=== PATIENT | female | born 1935 | race Caucasian/White ===

== ENCOUNTER 2017-01-02 01:15 | Inpatient (IN) | payer OTHER, MEDICARE ==
[~2017-01-02] VITALS: Ht 167.6 cm; Wt 97.0 kg
[2017-01-02] VITALS (8 sets, daily range): BP systolic 135–177; BP diastolic 61–83; PULSE 68–78; RESP 16–22; TEMP 95.5–98; O2SAT 93–98
[2017-01-02] MEDS ORDERED: OXYB5TAB10 PO (01:28)
[2017-01-02] MEDS ORDERED: AMLO10TA2 PO (01:28)
[2017-01-02] MEDS ORDERED: POTA10CA PO (01:28)
[2017-01-02] MEDS ORDERED: LOVA40TA PO (01:28)
[2017-01-02] MEDS ORDERED: TRIA37.5 PO (01:28)
[2017-01-02] MEDS ORDERED: LEVO100T5 PO (01:28)
[2017-01-02] MEDS ORDERED: LOSA50TA PO (01:28)
[2017-01-02] MEDS ORDERED: ONDANSETRON HCL 4 MG/2 ML VIAL IV PUSH ONE ×2 (01:30→12:00)
[2017-01-02] MEDS ORDERED: HYDROmorphone HCL PF 1 MG/ML VIAL IV PUSH ONE ×2 (01:30→03:15)
[2017-01-02] MEDS ORDERED: SODIUM CHLOR 0.9% 1000 ML INJ 1,000 ML IV SCH (01:30)
[2017-01-02 01:38] LABS: AUTOMATED NEUTROPHIL # 5.2 TH/MM3 (1.8-7.7); BASOPHIL # 0.1 TH/MM3 (0-0.2); BASOPHIL % 0.9 % (0.0-2.0); EOSINOPHIL # 0.2 TH/MM3 (0-0.4); EOSINOPHIL % 2.1 % (0.0-4.0); HEMATOCRIT 39.2 % (35.0-46.0); HEMO FLAGS DIFF FINAL; LYMPH % 17.5 % (9.0-44.0); LYMPHOCYTE # 1.3 TH/MM3 (1.0-4.8); MEAN CELL VOLUME 86.7 FL (80.0-100.0); MEAN CORPUSCULAR HEMOGLOBIN 29.2 PG (27.0-34.0); MEAN CORPUSCULAR HGB CONC 33.7 % (32.0-36.0); MONO % 10.5 % (0.0-8.0); PLATELET COUNT 223 TH/MM3 (150-450); RED BLOOD COUNT 4.52 MIL/MM3 (4.00-5.30); WHITE BLOOD COUNT 7.5 TH/MM3 (4.0-11.0)
[2017-01-02 01:48] LABS: APTT (PATIENT) 24.1 SEC (24.3-30.1); PROTHROMBIN TIME - PATIENT 10.9 SEC (9.8-11.6)
[2017-01-02 01:52] LABS: ALKALINE PHOSPHATASE 78 U/L (45-117); TOTAL BILIRUBIN ADULT 0.3 MG/DL (0.2-1.0)
[2017-01-02 01:53] LABS: ALT (GPT) 49 U/L (10-53); ANION GAP 7 MEQ/L (5-15); AST (GOT) 38 U/L (15-37); BICARBONATE 27.1 MEQ/L (21.0-32.0); BLOOD UREA NITROGEN 22 MG/DL (7-18); CHLORIDE 108 MEQ/L (98-107); GLOMERULAR FILTRATION RATE 56 ML/MIN (>89); POTASSIUM 3.6 MEQ/L (3.5-5.1); SODIUM (NA) 142 MEQ/L (136-145)
--- NOTE | 2017-01-02 02:15 | RADRPT ---
EXAM DATE/TIME: 01/02/2017 01:43 [facility] COMPARISON: No previous studies available for comparison. INDICATIONS : Patient states she fell tonight, pain. MEDICAL HISTORY : None. SURGICAL HISTORY : None. ENCOUNTER: Initial ACUITY: 1 day PAIN SCORE: 0/10 LOCATION: Bilateral chest FINDINGS: There is a large hiatal hernia. Heart size also enlarged. No focal consolidation or significant effus ion. No pneumothorax identified. Previous right shoulder joint replacement. CONCLUSION: 1. Moderate size hiatal hernia. No acute findings. Blue Elmore MD on January 02, 2017 at 2:13 Board Certified Radiologist. This report was verified electronically.
--- NOTE | 2017-01-02 02:16 | PD ---
HPI Chief Complaint: Injury Time Seen by Provider: : Travel History International Travel<30 days: No Contact w/Intl Traveler<30days: No Traveled to known affect area: No History of Present Illness HPI 81-year-old female complains of left leg pain. Patient states that she was walking and heard a snapping noise and started having severe pain on the left leg. Patient states that she fell down subsequently. Patient denies loss of consciousness. Patient denies any headache or neck pain. Patient denies any chest pain or shortness of breath. Patient denies abdominal pain. Patient denied any focal weakness or numbness of extremity. Patient had shoulder surgery in the past by Dr. Virk, Dr. Rivera and Dr. Israel. Patient has history of hypothyroidism, hypertension, dyslipidemia. PFSH Past Medical History High Cholesterol: Yes Genitourinary: Yes (URINARY INCONTINENCE) Hypertension: Yes Thyroid Disease: Yes (HYPO) ?: Not Past Surgical History Appendectomy: Yes Hysterectomy: Yes Other Surgery: Yes (CARPAL TUNNEL RELEASE BILAT, LEFT TOES SX) Social History Alcohol Use: Yes (OCC.) Tobacco Use: No Substance Use: No Allergies-Medications (Allergen,Severity, Reaction): Coded Allergies: Demerol (Verified Allergy, Severe, 01/02/17) Morphine (Verified Allergy, Severe, 01/02/17) Talwin (Verified Allergy, Severe, 01/02/17) Codeine (Verified Adverse Reaction, Severe, NAUSEA/VOMITING, 01/02/17) Uncoded Allergies: DEMEROL,TALWIN,CODEINE,MORPHINE (Allergy, Unknown, 07/14/03) NKA (Allergy, Unknown, 07/14/03) Reported Meds & Prescriptions Reported Meds & Active Scripts Active Reported Potassium Chloride ER (Potassium Chloride) 10 Meq Cap 10 Meq PO DAILY Triamterene-Hydrochlorothiazide 37.5-25 Mg Tab 1 Tab PO DAILY Levothyroxine (Levothyroxine Sodium) 100 Mcg Tab 100 Mcg PO DAILY Amlodipine (Amlodipine Besylate) 10 Mg Tab 10 Mg PO DAILY Losartan (Losartan Potassium) 50 Mg Tab 50 Mg PO DAILY Lovastatin 40 Mg Tab 40 Mg PO BID Ditropan (Oxybutynin Chloride) 5 Mg Tab 5 Mg PO Q12HR Review of Systems General / Constitutional: No: Fever Eyes: No: Visual changes HENT: No: Headaches Cardiovascular: No: Chest Pain or Discomfort Respiratory: No: Shortness of Breath Gastrointestinal: No: Abdominal Pain Genitourinary: No: Dysuria Musculoskeletal: Positive: Pain Skin: No Rash Neurologic: No: Weakness Psychiatric: No: Depression Endocrine: No: Polydipsia Hematologic/Lymphatic: No: Easy Bruising Physical Exam Narrative GENERAL: Well-nourished, well-developed patient. SKIN: Warm and dry. HEAD: Normocephalic. EYES: No scleral icterus. No injection or drainage. NECK: Supple, trachea midline. No JVD or lymphadenopathy. CARDIOVASCULAR: Regular rate and rhythm without murmurs, gallops, or rubs. RESPIRATORY: Breath sounds equal bilaterally. No accessory muscle use. GASTROINTESTINAL: Abdomen soft, non-tender, nondistended. MUSCULOSKELETAL: Patient has moderate tenderness diffuse over the left thigh area. Good DP pulse left foot. Sensorimotor function distally intact. BACK: Nontender without obvious deformity. No CVA tenderness. Neurologic exam normal. Data Data Last Documented VS Vital Signs Date Time Temp Pulse Resp B/P Pulse Ox O2 Delivery O2 Flow Rate FiO2 01/02/17 01:24 95 Room Air 01/02/17 01:19 69 01/02/17:17 98.0 22 177/83 Orders Electrocardiogram (01/02/17 01:18) Complete Blood Count With Diff (01/02/17 01:18) Comprehensive Metabolic Panel (01/02/17 01:18) Prothrombin Time / Inr (Pt) (01/02/17 01:18) Act Partial Throm Time (Ptt) (01/02/17 01:18) Urinalysis - C+S If Indicated (01/02/17 01:18) Chest, Single Ap (01/02/17 01:18) Iv Access Insert/Monitor (01/02/17 01:18) Ecg Monitoring (01/02/17 01:18) Oximetry (01/02/17 01:18) Urinary Catheter Insert/Apply (01/02/17 01:18) Type And Screen (01/02/17 01:18) Femur (Ap & Lat/2vws) (01/02/17 01:18) Sodium Chlor 0.9% 1000 Ml Inj (Ns 1000 M (01/02/17 01:30) Hydromorphone Pf Inj (Dilaudid Pf Inj) (01/02/17 01:30) Ondansetron Inj (Zofran Inj) (01/02/17 01:30) Admit Order (Ed Use Only) (01/02/17 02:16) Consult Orthopedic (01/03/17 07:00) Splint Or Brace Apply/Monitor (01/02/17 02:19) Labs Laboratory Tests Test 01/02/17 01:20 White Blood Count 7.5 TH/MM3 Red Blood Count 4.52 MIL/MM3 Hemoglobin 13.2 GM/DL Hematocrit 39.2 % Mean Corpuscular Volume 86.7 FL Mean Corpuscular Hemoglobin 29.2 PG Mean Corpuscular Hemoglobin 33.7 % Concent Red Cell Distribution Width 14.0 % Platelet Count 223 TH/MM3 Mean Platelet Volume 7.8 FL Neutrophils (%) (Auto) 69.0 % Lymphocytes (%) (Auto) 17.5 % Monocytes (%) (Auto) 10.5 % Eosinophils (%) (Auto) 2.1 % Basophils (%) (Auto) 0.9 % Neutrophils # (Auto) 5.2 TH/MM3 Lymphocytes # (Auto) 1.3 TH/MM3 Monocytes # (Auto) 0.8 TH/MM3 Eosinophils # (Auto) 0.2 TH/MM3 Basophils # (Auto) 0.1 TH/MM3 CBC Comment DIFF FINAL Differential Comment Prothrombin Time 10.9 SEC Prothromb Time International 1.0 RATIO Ratio Activated Partial 24.1 SEC Thromboplast Time Sodium Level 142 MEQ/L Potassium Level 3.6 MEQ/L Chloride Level 108 MEQ/L Carbon Dioxide Level 27.1 MEQ/L Anion Gap 7 MEQ/L Blood Urea Nitrogen 22 MG/DL Creatinine 0.95 MG/DL Estimat Glomerular Filtration 56 ML/MIN Rate Random Glucose 120 MG/DL Calcium Level 9.2 MG/DL Total Bilirubin 0.3 MG/DL Aspartate Amino Transf 38 U/L (AST/SGOT) Alanine Aminotransferase 49 U/L (ALT/SGPT) Alkaline Phosphatase 78 U/L Total Protein 6.4 GM/DL Albumin 3.6 GM/DL Blood Type A POSITIVE [facility] Medical Decision Making Medical Screen Exam Complete: Yes Emergency Medical Condition: Yes Differential Diagnosis Differential diagnosis including sprain, fracture, dislocation. Narrative Course 81-year-old female with left thigh injury. Dilaudid 1 mg IV. Zofran 4 mg IV. Normal saline solution 70 cc an hour. I spoke with Dr. Rivera, orthopedist environmental aide. Advised medical admission and consult Dr. Crawley in a.m. Guardado's traction. Diagnosis Primary Impression: Fracture of left femur Qualified Code: S72.322A - Closed displaced transverse fracture of shaft of left femur, initial encounter Admitting Information Admitting Physician Requests: Admit Yusuf Garza MD Jan 02, 2017 02:16
--- NOTE | 2017-01-02 02:17 | RADRPT ---
EXAM DATE/TIME: 01/02/2017 01:34 [facility] COMPARISON: No previous studies available for comparison. INDICATIONS : Patient states she was walking and heard a snap from her left leg. MEDICAL HISTORY : None. SURGICAL HISTORY : None. ENCOUNTER: Initial ACUITY: 1 day PAIN SCORE: 10/10 LOCATION: Left Femur FINDINGS: There is a fracture proximal to mid shaft left femur. Bones osteopenic. 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 CONCLUSION: 1. Fracture proximal to mid shaft left femur with displacement of the fracture by greater than one sh aft width and approximately 9 cm of foreshortening and overlap. Blue Elmore MD on January 02, 2017 at 2:14 Board Certified Radiologist. This report was verified electronically.
[2017-01-02] MEDS ORDERED: HYDROmorphone HCL PF 1 MG/ML VIAL IV PUSH PRN ×2 (02:30)
[2017-01-02] MEDS ORDERED: BISACODYL 10 MG SUPP PR PRN (02:30)
[2017-01-02] MEDS ORDERED: ACETAMINOPHEN 325 MG TAB PO PRN (02:30)
[2017-01-02] MEDS ORDERED: SODIUM CHLORIDE 0.9% FLUSH 5 ML FLUSH FLUSH PRN (02:30)
[2017-01-02] MEDS: SODIUM CHLOR 0.9% 1000 ML INJ 1,000 ML IV SCH (02:57)
--- NOTE | 2017-01-02 03:42 | HHI.HP ---
HPI Service [facility] Primary Care Physician Non-Staff Admission Diagnosis fracture left femur Diagnoses: (1) Fracture of left femur Diagnosis: Principal (2) Dehydration Diagnosis: Principal (3) HTN (hypertension) Diagnosis: Principal Travel History International Travel<30 Days: No Contact w/Intl Traveler <30 Da: No Traveled to Known Affected Are: No History of Present Illness This is an 81-year-old female with a PMH of HTN and Hypothyroidism who is brought to the ER by EMS secondary to acute onset of severe left leg pain. 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 Unable to ambulate. On arrival, BP 177/83, HR 77, O2 sat 95% on RA, Afebrile. CBC unremarkable. Chemistry essentially unremarkable except for GFR 56. CXR with moderate sized hiatal hernia, no acute findings. Femur X-ray with fracture proximal to mid shaft left femur with displacement of fracture. Ortho consulted by ER physician, plan for surgical intervention in am. Review of Systems Except as stated in HPI: all other systems reviewed are Neg ROS: 14 point review of systems otherwise negative. Past Family Social History Past Medical History PMH: HTN and Hypothyroidism Past Surgical History PAST SURGICAL HISTORY: Appendectomy, Hysterectomy, Carpal Tunnel Release, Left Toe Surgery Allergies: Coded Allergies: Demerol (Verified Allergy, Severe, 01/02/17) Morphine (Verified Allergy, Severe, 01/02/17) Talwin (Verified Allergy, Severe, 01/02/17) Codeine (Verified Adverse Reaction, Severe, NAUSEA/VOMITING, 01/02/17) Uncoded Allergies: DEMEROL,TALWIN,CODEINE,MORPHINE (Allergy, Unknown, 07/14/03) NKA (Allergy, Unknown, 07/14/03) Family History PAST FAMILY HISTORY: Reviewed. No h/o DM or CAD Social History PAST SOCIAL HISTORY: Occasional alcohol. Negative for tobacco or drugs. Physical Exam Vital Signs Vital Signs Date Time Temp Pulse Resp B/P Pulse Ox O2 Delivery O2 Flow Rate FiO2 01/02/17 03:16 78 18 152/70 98 Room Air 01/02/17 01:24 95 Room Air 01/02/17 01:19 69 01/02/17 01:17 98.0 77 22 177/83 95 Physical Exam PE: GENERAL: Pleasant elderly white female in no acute distress. HEENT: PERRLA, EOMI. No scleral icterus or conjunctival pallor. No lid lag or facial droop. CARDIOVASCULAR: Regular rate and rhythm. No obvious murmurs to auscultation. No chest tenderness to palpation. RESPIRATORY: No obvious rhonchi or wheezing. Clear to auscultation. Breath sounds equal bilaterally. GASTROINTESTINAL: Abdomen soft, non-tender, nondistended. BS normal. MUSCULOSKELETAL: Decreased ROM of LLE due to fracture. Pulses intact. NEUROLOGICAL: Awake, alert and oriented x4. No focal neurologic deficits. Moving both upper and lower extremities spontaneously. Laboratory Laboratory Tests Test 01/02/17 01:20 White Blood Count 7.5 Red Blood Count 4.52 Hemoglobin 13.2 Hematocrit 39.2 Mean Corpuscular Volume 86.7 Mean Corpuscular Hemoglobin 29.2 Mean Corpuscular Hemoglobin 33.7 Concent Red Cell Distribution Width 14.0 Platelet Count 223 Mean Platelet Volume 7.8 Neutrophils (%) (Auto) 69.0 Lymphocytes (%) (Auto) 17.5 Monocytes (%) (Auto) 10.5 Eosinophils (%) (Auto) 2.1 Basophils (%) (Auto) 0.9 Neutrophils # (Auto) 5.2 Lymphocytes # (Auto) 1.3 Monocytes # (Auto) 0.8 Eosinophils # (Auto) 0.2 Basophils # (Auto) 0.1 CBC Comment DIFF FINAL Differential Comment Prothrombin Time 10.9 Prothromb Time International 1.0 Ratio Activated Partial 24.1 Thromboplast Time Sodium Level 142 Potassium Level 3.6 Chloride Level 108 Carbon Dioxide Level 27.1 Anion Gap 7 Blood Urea Nitrogen 22 Creatinine 0.95 Estimat Glomerular Filtration 56 Rate Random Glucose 120 Calcium Level 9.2 Total Bilirubin 0.3 Aspartate Amino Transf 38 (AST/SGOT) Alanine Aminotransferase 49 (ALT/SGPT) Alkaline Phosphatase 78 Total Protein 6.4 Albumin 3.6 Blood Type A POSITIVE Antibody Screen NEGATIVE Result Diagram: 01/02/1711901/02/170 Assessment and Plan Problem List: (1) Fracture of left femur ICD Code: S72.92XA Status: Acute (2) Dehydration ICD Code: E86.0 Status: Acute (3) HTN (hypertension) ICD Code: I10 Status: Acute Assessment and Plan A/P: 1. Left Femur Fx: s/p spontaneous fracture while walking, no injury reported. Femur X-ray w/ fracture proximal to mid shaft left femur with displacement of fracture images reviewed by me. Ortho consulted by ER physician, plan for surgical intervention in am. NPO, IVF, analgesics/antiemetics. 2. Dehydration: GFR 56, BUN 22. IVF for hydration, repeat labs in am. 3. HTN: BP 170's on arrival, likely compounded by pain. Currently BP 140's systolic. Resume home Losartan and Norvasc. Hold Triamterene/HCTZ in light of dehydration. Monitor BP. 4. DVT Prophylaxis: Anticoagulation post-op per Ortho 5. Social work for d/c planning as needed. 6. Case discussed w/ ER physician at length. Physician Certification 2 Midnight Certification Type: Admission for Inpatient Services Order for Inpatient Services The services are ordered in accordance with Medicare regulations or non- Medicare payer requirements, as applicable. In the case of services not specified as inpatient-only, they are appropriately provided as inpatient services in accordance with the 2-midnight benchmark. Estimated LOS (days): 2 days is the estimated time the patient will need to remain in the hospital, assuming treatment plan goals are met and no additional complications. Post-Hospital Plan: Not yet determined Problem Qualifiers (1) Fracture of left femur: Qualified Code: S72.322A - Closed displaced transverse fracture of shaft of left femur, initial encounter Bessie Luis MD Jan 02, 2017 03:41
[2017-01-02] MEDS ORDERED: DIAZEPAM 10 MG TAB PO ONE (03:45)
[2017-01-02 04:06] LABS: BACTERIA, URINE RARE /hpf; BLOOD, URINE NEG (NEG); COMMENT (UR) CULT NOT INDICATED; CULTURE IF INDICATED CULT NOT INDICATED; GLUCOSE,URINE NEG (NEG); KETONE, URINE NEG (NEG); NITRITE,URINE NEG (NEG); PH, URINE 6.5 (5.0-8.5); SQUAMOUS EPITHELIAL CELL URINE <1 /hpf (0-5); URINE COLOR YELLOW (YELLW/STRAW)
[2017-01-02] MEDS ORDERED: FOSA70TA PO (04:36)
[2017-01-02] MEDS ORDERED: TRAM50TA PO (04:36)
[2017-01-02] MEDS: LEVOTHYROXINE SODIUM 100 MCG TAB PO SCH (06:00)
--- NOTE | 2017-01-02 07:00 | PD.ORT.PN ---
Subjective Subjective Remarks Has been on Fosamax exterminator since approximately 1988 due to osteoporosis. She states she was walking in her house yesterday when she felt and heard a "snap". She fell to the floor and had pain and was unable to ambulate. She denies any numbness or tingling distally. He has no other associated complaints Objective Vitals Vital Signs Date Time Temp Pulse Resp B/P Pulse Ox O2 Delivery O2 Flow Rate FiO2 01/02/17 04:03 97.0 69 17 136/61 93 01/02/17 03:16 78 18 152/70 98 Room Air 01/02/17 01:24 95 Room Air 01/02/17 01:19 69 01/02/17 01:17 98.0 77 22 177/83 95 I/O 01/01/17 01/01/17 01/01/17 01/02/17 01/02/17 01/02/17 06:59 14:59 22:59 06:59 14:59 22:59 Intake Total 0 ml Output Total 600 ml Balance -600 ml Intake Oral 0 ml Output Urine Total 600 ml # Bowel Movements 0 Result Diagram: 01/02/17 0120 01/02/17 0120 Other Results Laboratory Tests Test 01/02/17 01:20 Prothrombin Time 10.9 SEC (9.8-11.6) Prothromb Time International 1.0 RATIO Ratio Imaging Last 24 hours Impressions Femur X-Ray 01/02/17117 Signed Impressions: Service Date/Time: Monday, January 02, 2017 01:34 - CONCLUSION: 1. Fracture proximal to mid shaft left femur with displacement of the fracture by greater than one shaft width and approximately 9 cm of foreshortening and overlap. Blue Elmore MD Chest X-Ray 01/02/17117 Signed Impressions: Service Date/Time: Monday, January 02, 2017 01:43 - CONCLUSION: 1. Moderate size hiatal hernia. No acute findings. Blue Elmore MD Objective Remarks Bilateral upper extremities: Full range of motion neurovascularly intact Right lower extremity: Full range of motion neurovascular intact Left lower extremity: Intact skin over femur. In Guardado's traction. Intact sensation distally and is able to move toes Assessment & Plan Assessment and Plan Left midshaft femoral fracture Remain in Guardado's traction and bed rest Nothing by mouth Surgery this morning with intramedullary itzel fixation with Dr. Woods Sign consents ARCELIA SHAW PA-C Jan 02, 2017 07:00
--- NOTE | 2017-01-02 07:35 | MB ---
cc: MIKE FELDMAN CAMILLE MD DATE OF CONSULTATION: 01/02/2017 REASON FOR CONSULTATION Left femur fracture. CONSULTING PHYSICIAN Dr. Luis HISTORY OF PRESENT ILLNESS Jeane is an 81-year-old female who has a history of hypertension and hypothyroidism. She has been on Fosamax since approximately 1988. She had no pain in her femur until last night. She states that she was walking when she felt a pop in her thigh. She was unable to ambulate. She did not have a true fall. She was able to ease herself down to the ground gently. She presented to the emergency room where x-rays revealed a displaced left femur fracture. She is currently awake and alert on the orthopedic floor. Her only complaint is her left thigh. Pain is worse with movement and is improved with rest. She works as a registered nurse. She denies any dizziness, syncope or loss of consciousness. PAST MEDICAL HISTORY ILLNESSES 1. Hypertension. 2. Hypothyroidism. 3. Osteoporosis. SURGERIES 1. Appendectomy. 2. Hysterectomy. 3. Carpal tunnel release. 4. Left toe surgery. ALLERGIES 1. DEMEROL. 2. MORPHINE. 3. TALWIN. 4. CODEINE. MEDICATIONS Please see EMR for complete list of inpatient medications; this was reviewed. FAMILY HISTORY Noncontributory. She denies any heart problems or diabetes in her family. SOCIAL HISTORY The patient drinks alcohol occasionally. She denies tobacco or drug use. She works as a registered nurse. REVIEW OF SYSTEMS The patient denies headache, visual changes, neck pain, chest pain, shortness of breath, abdominal pain, nausea, vomiting or recent weight loss, bowel or bladder incontinence, numbness or tingling of the extremities. She complains of left thigh pain. PHYSICAL EXAMINATION GENERAL: The patient is a well-developed, well-nourished 81-year-old female who is awake and alert. She is alert and oriented x3. VITAL SIGNS: Temperature 97.0, pulse 69, respirations 17, blood pressure 136/61. O2 sat is 93% on room air. Head: The patient is normocephalic. Pupils are equal. NECK: Soft, nontender. Trachea is midline. ABDOMEN: Soft, nontender, nondistended. EXTREMITIES: Examination of bilateral upper extremities reveals no pain with shoulder, elbow or wrist motion. Skin is intact to both hands. Business Continuity Global Director strength is +5. Radial pulses are palpable. Sensation is intact in the radial, ulna and median nerve distributions bilaterally. Examination of right leg reveals no pain with hip, knee or ankle motion. Skin is intact. Dorsalis pedis pulse is palpable. Sensation is intact. Examination of left leg reveals diffuse tenderness around her left thigh. She has pain with any attempted hip or knee motion. She has no tenderness around her tibia, foot or ankle. Skin is intact. Dorsalis pedis pulse is palpable. Sensation is intact in the left foot. Calf and thigh compartments are soft. X-RAYS X-rays of the left femur were reviewed. X-rays reveal a displaced midshaft femur fracture. IMPRESSION 1. Osteoporosis. 2. Hypertension. 3. Hypothyroidism. 4. Atypical femur fracture likely related to long-term bisphosphonate use. PLAN The treatment options were discussed with the patient. At this point I would recommend reduction and intramedullary nail fixation of the left femur. Risks of surgery include bleeding, infection, injuries to arteries, nerves and blood vessels, nonunion, malunion, painful hardware, as well as medical complications including blood clot, stroke, heart attack and . All questions were answered. I will plan on surgery today. I also explained to the patient that she will need a vacation from bisphosphonates. She should likely refrain from bisphosphonate use for at least two years. The patient would likely benefit from the use of Forteo for treatment of her osteoporosis as well as in aiding the healing process of this femur fracture. A mid-level provider in my office, nurse practitioner or PA, may see this patient on a follow-up basis and continue to implement the objective of this plan including: Starting or adjusting medications, injections of muscle, tendon, bursa or joints, cast application, orthotic or brace application, physical therapy, further radiographic studies including x-ray, MRI, CT, ultrasounds or bone scan, vascular studies, neurologic studies, or other specialist consultations, and proceeding with surgical management as appropriate. MD MALLORY Carey/JEAN CLAUDE /7:01 AM 7:25 AM
[2017-01-02] MEDS ORDERED: ACETAMINOPHEN 1000 MG/100 ML VIAL IV ONE (08:21)
[2017-01-02] MEDS ORDERED: FAMOTIDINE 20 MG/2 ML VIAL ONE (08:21)
[2017-01-02] MEDS ORDERED: VITA2000 PO (08:34)
[2017-01-02] MEDS ORDERED: CALCTAB19 PO (08:34)
[2017-01-02] MEDS ORDERED: WALKER/ADULT/FO1 MIS (08:34)
[2017-01-02] MEDS ORDERED: ERGO1CAP30 PO (08:34)
[2017-01-02] MEDS ORDERED: HYDR-3288 PO (08:34)
[2017-01-02] MEDS: SODIUM CHLORIDE 0.9% FLUSH 5 ML FLUSH FLUSH SCH ×2 (08:39→21:00)
[2017-01-02] MEDS: LOSARTAN 50 MG TAB PO SCH (08:39)
[2017-01-02] MEDS: OXYBUTYNIN CHLORIDE 5 MG TAB PO SCH ×2 (08:39→21:00)
[2017-01-02] MEDS ORDERED: MIDAZOLAM HCL 2 MG/2 ML VIAL ONE ×2 (08:42→10:53)
[2017-01-02] MEDS ORDERED: DEXAMETHASONE SOD PHOS 4 MG/ML VIAL ONE (08:42)
[2017-01-02] MEDS ORDERED: GENTAMICIN SULFATE 80 MG/2 ML VIAL ONE (08:49)
[2017-01-02] MEDS ORDERED: BUPIVACAINE/EPINEPHRINE 0.25% PF 30 ML VIAL ONE (08:49)
[2017-01-02] MEDS ORDERED: VANCOMYCIN HCL 1000 MG VIAL ONE (08:49)
[2017-01-02] MEDS ORDERED: SODIUM CHLOR 0.9% 250 ML INJ 250 ML ONE (08:49)
[2017-01-02] MEDS ORDERED: ceFAZolin 2 GM PREMIX 50 ML ONE (08:49)
[2017-01-02] MEDS ORDERED: GENTAMICIN SULFATE 80 MG/2 ML VIAL IRRIGATION ONE (09:40)
[2017-01-02] MEDS ORDERED: MORPHINE SULFATE 4 MG/ML INJ IV PUSH PRN (10:15)
[2017-01-02] MEDS ORDERED: SODIUM CHLORIDE 0.9% FLUSH 5 ML FLUSH IVF PRN (10:15)
--- NOTE | 2017-01-02 10:18 | PD.OP ---
cc: Jun Crawley MD Operative Report Date of Surgery: Jan 02, 2017 Preoperative Diagnosis: Displaced left femoral shaft fracture Postoperative Diagnosis: Procedure: Left femur reduction and intramedullary nail fixation Surgeon: Jun Crawley Tile And Marble Setter(s): TRICIA Medina PA-C The surgical procedure was assisted by my physician night assistant. My P.A. presence was necessary throughout this case for the manipulation and positioning of the surgical extremity. My P.A. was assisting me throughout the duration of this procedure. The skill set of a physician night assistant was medically necessary to complete this procedure. During the surgical case the surgical specialist was working at the back table and the physician night assistant was directly assisting me. Operation and Findings: Implants used: 11 mm x [360]mm Synthes 130 TFNA troch nail Plan of activity: Weight-bear as tolerated Patient was seen and evaluated preoperatively. The patient has significant pain from atypical femoral shaft fracture. The risk and benefits of surgery were discussed in depth with the patient to include bleeding, infection, nonunion, malunion, need for hip replacement, painful hardware, as well as medical competitions including blood clots, stroke, heart attack, and . Informed consent was obtained. Operative site was marked. Patient was brought to the operating room and placed on fracture table. IV sedation was administered by anesthesiologist. Timeout procedure was performed. Hip and leg were prepped with alcohol followed by DuraPrep and draped in the usual sterile fashion. IV antibiotics were given prior to incision. Procedure began with reduction of fracture. Traction was applied. The leg was manipulated to achieve reduction. Excellent reduction was achieved. Fluoroscopy was used to confirm reduction. A three inch incision was made proximal to the trochanter. Subcutaneous tissue was dissected bluntly. Guidepin was placed at the tip of the trochanter and advanced into the femoral canal. Fluoroscopy confirmed appropriate guidepin placement. A opening reamer was placed over the guidepin. A long ball tipped guide pin was now placed down the femoral canal into the center of the distal femur. The nail length was now measured. Fluoroscopy confirmed appropriate guidepin placement. Flexible reamers were now passed over the guidepin to ream the intramedullary canal. The Synthes TFNA nail was attached to the insertion handle. Nail was now placed over the guidepin into the femoral canal. Fluoroscopy confirmed appropriate nail placement. A second incision was made over the lateral thigh. Cannulas were placed through the insertion handle down to the femur. Guidepin was now placed through the femoral nail into the center of the femoral head. Fluoroscopy confirmed appropriate guidepin placement. Screw length was measured. Cannulated drill was placed over the guidepin. Appropriate length lag screw was now placed. Traction was released and compression was applied across the femoral shaft fracture. The set screw was now tightened in static mode. Next, using perfect [place] technique two distal interlocking screws were placed. Screw holes were predrilled and screw lengths were measured. Final fluoroscopy revealed well aligned fracture with well-placed hardware. Incision was closed with 3-0 Vicryl and gerson. Sterile dressings were applied. Patient was awakened and transferred to recovery room. Jun Crawley MD Jan 02, 2017 10:17
[2017-01-02] MEDS ORDERED: fentaNYL CITRATE 250 MCG/5 ML AMP ONE (10:53)
[2017-01-02] MEDS ORDERED: *HYDROmorphone PF 1 MG VIAL PERIprocedural Use ONLY ONE (10:54)
[2017-01-02] MEDS ORDERED: diphenhydrAMINE HCL 25 MG CAP PO PRN (11:00)
[2017-01-02] MEDS ORDERED: *ENALAPRILAT 1.25 MG/ML VIAL PERIprocedural Use ONLY ONE (11:17)
[2017-01-02] MEDS ORDERED: *ONDANSETRON 4 MG VIAL PERIprocedural Use ONLY ONE (11:24)
[2017-01-02] MEDS ORDERED: NEOSTIGMINE 3 MG/3 ML SYR IV ONE (12:00)
[2017-01-02] MEDS ORDERED: PROPOFOL 200 MG/20 ML AMP IV ONE (12:00)
--- NOTE | 2017-01-02 12:04 | EKG ---
Date Performed: 01/02/2017 Time Performed: 01:56:59 PTAGE: 81 years EKG: Sinus rhythm Compared to prior tracing no significant change PREVIOUS TRACING : 08/09/2004 11.29 DOCTOR: Elton Mariscal Interpretating Date/Time 01/02/2017 12:03:40
[2017-01-02] MEDS ORDERED: ACETAMINOPHEN/HYDROcodone 325 MG/7.5 MG TAB PO PRN (13:00)
[2017-01-02] MEDS: CALCIUM/VITAMIN D 250 MG/125 U TAB PO SCH ×2 (13:00→17:08)
[2017-01-02] MEDS ORDERED: ERGOCALCIFEROL (VIT D2) 50,000 UNIT CAP PO ONE (13:00)
[2017-01-02] MEDS: ONDANSETRON HCL 4 MG/2 ML VIAL IVP PRN (14:32)
--- NOTE | 2017-01-02 14:42 | RADRPT ---
EXAM DATE/TIME: 01/02/2017 10:07 [place] COMPARISON: FEMUR LEFT (AP & LAT/2VWS), January 02, 2017, 1:34. INDICATIONS: ORIF left femur IM itzel. MEDICAL HISTORY: None. SURGICAL HISTORY: None. ENCOUNTER: Subsequent ACUITY: 1 day PAIN SCORE: Non-responsive. LOCATION: Left femur. FINDINGS: Intramedullary itzel is seen bridging the fracture of the femur. Alignment is anatomic. Troch nail is also present. CONCLUSION: Anatomic alignment. Sherwin Avelar MD FACR on January 02, 2017 at 14:05 Board Certified Radiologist. This report was verified electronically.
[2017-01-02] MEDS: ACETAMINOPHEN/HYDROcodone 325 MG/7.5 MG TAB PO PRN (17:08)
[2017-01-02] MEDS ORDERED: SODIUM CHLORIDE 0.9% FLUSH 5 ML FLUSH IVF SCH (21:00)
[2017-01-03] VITALS (8 sets, daily range): BP systolic 120–175; BP diastolic 60–77; PULSE 64–113; RESP 16–18; TEMP 96.7–98.6; O2SAT 92–97
[2017-01-03] MEDS: ACETAMINOPHEN/HYDROcodone 325 MG/7.5 MG TAB PO PRN ×4 (06:37→23:40)
[2017-01-03] MEDS: LEVOTHYROXINE SODIUM 100 MCG TAB PO SCH (06:37)
--- NOTE | 2017-01-03 06:43 | PD.ORT.PN ---
Subjective Subjective Remarks POD 1 s/p IMN left femur doing well. out of bed yesterday. no complaints Objective Vitals Vital Signs Date Time Temp Pulse Resp B/P Pulse Ox O2 Delivery O2 Flow Rate FiO2 01/03/17 00:00 97.5 113 18 120/65 92 01/02/17 21:28 18 01/02/17 20:45 96.9 68 17 135/65 94 01/02/17 19:54 18 01/02/17 15:42 95.9 73 16 147/69 94 01/02/17 12:25 95.5 68 16 144/69 95 01/02/17 12:00 97.6 60 15 145/77 95 Nasal Cannula 3 01/02/17 11:45 61 15 156/75 94 Nasal Cannula 3 01/02/17 11:30 62 15 164/78 95 Nasal Cannula 4 01/02/17 11:24 15 01/02/17 11:15 65 16 181/82 94 Nasal Cannula 4 01/02/17 11:00 64 15 179/85 93 Nasal Cannula 4 01/02/17 10:45 67 15 165/80 96 Simple Mask 7 01/02/17 10:40 97.4 70 15 158/83 94 Simple Mask 7 01/02/17 07:30 95.9 68 16 171/77 95 I/O 01/02/17 01/02/17 01/02/17 01/03/17 01/03/17 01/03/17 07:00 15:00 23:00 07:00 15:00 23:00 Intake Total 814 ml 1280 ml 1076 ml 884 ml Output Total 600 ml 550 ml 575 ml Balance 214 ml 730 ml 501 ml 884 ml Intake Oral 0 ml 480 ml 240 ml IV Total 814 ml 100 ml 836 ml 884 ml Other 700 ml Output Urine Total 600 ml 500 ml 575 ml Estimated Blood Loss 50 ml # Voids 0 # Bowel Movements 0 0 0 Result Diagram: 01/02/1711901/02/17119 Imaging Last 24 hours Impressions Femur X-Ray 01/02/17 0118 Signed Impressions: Service Date/Time: Monday, January 02, 2017 01:34 - CONCLUSION: 1. Fracture proximal to mid shaft left femur with displacement of the fracture by greater than one shaft width and approximately 9 cm of foreshortening and overlap. Blue Elmore MD Chest X-Ray 01/02/17 0118 Signed Impressions: Service Date/Time: Monday, January 02, 2017 01:43 - CONCLUSION: 1. Moderate size hiatal hernia. No acute findings. Blue Elmore MD Objective Remarks RLE: dressings clean and dry. intact. NVI Assessment & Plan Assessment and Plan 1) Left Midshaft Femur fx s/p IMN - POD 1 -WBAT -dressing changes POD 2 -CM for rehab placement -DVT prophylaxis -f/u with Peggy or [facility] in 2 weeks Paxton Deras Jan 03, 2017 06:42
[2017-01-03 07:19] LABS: AUTOMATED NEUTROPHIL # 7.3 TH/MM3 (1.8-7.7); BASOPHIL % 0.4 % (0.0-2.0); EOSINOPHIL # 0.1 TH/MM3 (0-0.4); EOSINOPHIL % 0.6 % (0.0-4.0); HEMATOCRIT 33.6 % (35.0-46.0); HEMO FLAGS DIFF FINAL; LYMPHOCYTE # 0.9 TH/MM3 (1.0-4.8); MEAN CELL VOLUME 87.3 FL (80.0-100.0); MEAN CORPUSCULAR HEMOGLOBIN 29.6 PG (27.0-34.0); MEAN CORPUSCULAR HGB CONC 33.9 % (32.0-36.0); MONO % 7.6 % (0.0-8.0); NEUT % 81.4 % (16.0-70.0); PLATELET COUNT 213 TH/MM3 (150-450); RED BLOOD COUNT 3.85 MIL/MM3 (4.00-5.30); RED CELL DISTRIBUTION WIDTH 14.1 % (11.6-17.2)
[2017-01-03 07:44] LABS: ALKALINE PHOSPHATASE 62 U/L (45-117); ALT (GPT) 38 U/L (10-53); ANION GAP 8 MEQ/L (5-15); AST (GOT) 31 U/L (15-37); BICARBONATE 25.9 MEQ/L (21.0-32.0); BLOOD UREA NITROGEN 13 MG/DL (7-18); CHLORIDE 108 MEQ/L (98-107); GLOMERULAR FILTRATION RATE 92 ML/MIN (>89); POTASSIUM 3.2 MEQ/L (3.5-5.1); SODIUM (NA) 142 MEQ/L (136-145); TOTAL BILIRUBIN ADULT 0.5 MG/DL (0.2-1.0)
[2017-01-03] MEDS: SODIUM CHLORIDE 0.9% FLUSH 5 ML FLUSH FLUSH SCH ×2 (09:00→21:08)
[2017-01-03] MEDS: ENOXAPARIN SODIUM 30 MG/0.3 ML SYRINGE SQ SCH (10:27)
[2017-01-03] MEDS: CHOLECALCIFEROL (VIT D3) 5000 UNIT CAP PO SCH (10:28)
[2017-01-03] MEDS: CALCIUM/VITAMIN D 250 MG/125 U TAB PO SCH ×3 (10:30→18:36)
[2017-01-03] MEDS: OXYBUTYNIN CHLORIDE 5 MG TAB PO SCH ×2 (10:30→21:08)
[2017-01-03] MEDS: LOSARTAN 50 MG TAB PO SCH (10:30)
--- NOTE | 2017-01-03 14:25 | HHI.PR ---
Subjective Remarks pain controlled very motivated with PT Objective Vitals Vital Signs Date Time Temp Pulse Resp B/P Pulse Ox O2 Delivery O2 Flow Rate FiO2 01/03/17 14:08 93 Nasal Cannula 3.00 01/03/17 12:00 98.6 70 18 154/66 97 01/03/17 08:00 98.4 66 18 137/61 93 01/03/17 07:37 18 01/03/17 04:00 96.7 73 18 145/60 93 01/03/17 00:00 97.5 113 18 120/65 92 01/02/17 21:28 18 01/02/17 20:45 96.9 68 17 135/65 94 01/02/17 15:42 95.9 73 16 147/69 94 I/O 01/02/17 01/02/17 01/02/17 01/03/17 01/03/17 01/03/17 07:00 15:00 23:00 07:00 15:00 23:00 Intake Total 814 ml 1280 ml 1076 ml 2079 ml Output Total 600 ml 550 ml 575 ml 950 ml Balance 214 ml 730 ml 501 ml 1129 ml Intake Oral 0 ml 480 ml 240 ml 480 ml IV Total 814 ml 100 ml 836 ml 1599 ml Other 700 ml Output Urine Total 600 ml 500 ml 575 ml 950 ml Estimated Blood Loss 50 ml # Voids 0 # Bowel Movements 0 0 0 0 Result Diagram: 01/03/17 0556 01/03/17 0556 Imaging Last Impressions Femur X-Ray 01/02/17117 Signed Impressions: Service Date/Time: Monday, January 02, 2017 01:34 - CONCLUSION: 1. Fracture proximal to mid shaft left femur with displacement of the fracture by greater than one shaft width and approximately 9 cm of foreshortening and overlap. Blue Elmore MD Chest X-Ray 01/02/17117 Signed Impressions: Service Date/Time: Monday, January 02, 2017 01:43 - CONCLUSION: 1. Moderate size hiatal hernia. No acute findings. Blue Elmore MD Objective Remarks awake and alert lungs clear regular rhythm abdomen- slightly distended, but soft, few bowel sounds extremities no calf tenderness post op dressing in place Procedures 01/02- IMN left hip Urinary Catheter: Yes Quintana insert reason: Surgical/Invasive Proced Date of Insertion: Jan 02, 2017 A/P Problem List: (1) Fracture of left femur ICD Code: S72.92XA Status: Acute (2) Dehydration ICD Code: E86.0 Status: Acute (3) HTN (hypertension) ICD Code: I10 Status: Acute Assessment and Plan 1. Left Femur Fx: S/P IMN- 01/02 s/p spontaneous fracture while wallking Ortho ff. PT daily 2. Dehydration- corrected with IVF. decrease rate. good po 3. HTN: BP 170's on arrival, likely compounded by pain. Currently BP 140's systolic. Resume home Losartan and Norvasc. Hold Triamterene/HCTZ in light of dehydration. Monitor BP. 4. DVT Prophylaxis: Lovenox 5. Social work for d/c planning as needed. - SNF 6. Case discussed w/ ER physician at length. Problem Qualifiers (1) Fracture of left femur: Qualified Code: S72.322A - Closed displaced transverse fracture of shaft of left femur, initial encounter Serge Junior MD Jan 03, 2017 14:25
[2017-01-03] MEDS ORDERED: MAGNESIUM HYDROXIDE SUSP 30 ML CUP PO ONE (14:45)
[2017-01-03] MEDS: DOCUSATE SODIUM 100 MG CAP PO SCH ×2 (14:45→21:08)
[2017-01-03] MEDS ORDERED: SENNOSIDES 8.6 MG TAB PO ONE (14:45)
[2017-01-04 00:15] VITALS: BP_SYST 158; PULSE 81; RESP 17; TEMP 98.7; O2SAT 94
[2017-01-04] MEDS: SODIUM CHLOR 0.9% 1000 ML INJ 1,000 ML IV SCH (04:18)
[2017-01-04] MEDS: LACTATED RINGER'S 1000 ML IV SCH (04:30)
[2017-01-04] MEDS: ACETAMINOPHEN/HYDROcodone 325 MG/7.5 MG TAB PO PRN ×4 (05:45→22:28)
[2017-01-04] MEDS: LEVOTHYROXINE SODIUM 100 MCG TAB PO SCH (05:45)
[2017-01-04 08:00] VITALS: BP 139/68; PULSE 76; RESP 18; TEMP 97.6; O2SAT 94
--- NOTE | 2017-01-04 09:31 | HHI.PR ---
Subjective Remarks pain controlled- not really asking for much patient voided spontaneously and had a BM motivated with PT Objective Vitals Vital Signs Date Time Temp Pulse Resp B/P Pulse Ox O2 Delivery O2 Flow Rate FiO2 01/04/17 08:00 97.6 76 18 139/68 94 01/04/17 00:15 98.7 81 17 158/ 94 01/03/17 20:24 98.4 81 16 134/63 95 01/03/17 18:45 95 21 01/03/17 16:56 98.1 75 16 175/77 95 01/03/17 14:08 93 Nasal Cannula 3.00 01/03/17 12:00 98.6 70 18 154/66 97 I/O 01/03/17 01/03/17 01/03/17 01/04/17 01/04/17 01/04/17 06:59 14:59 22:59 06:59 14:59 22:59 Intake Total 1364 ml 1315 ml 480 ml 240 ml Output Total 950 ml 850 ml 225 ml Balance 414 ml 465 ml 255 ml 240 ml Intake Oral 480 ml 600 ml 480 ml 240 ml IV Total 884 ml 715 ml Output Urine Total 950 ml 850 ml 225 ml # Voids 2 # Bowel Movements 0 1 0 0 Result Diagram: 01/03/1756 01/03/1756 Imaging Last Impressions Femur X-Ray 01/02/17117 Signed Impressions: Service Date/Time: Monday, January 02, 2017 01:34 - CONCLUSION: 1. Fracture proximal to mid shaft left femur with displacement of the fracture by greater than one shaft width and approximately 9 cm of foreshortening and overlap. Blue Elmore MD Chest X-Ray 01/02/17117 Signed Impressions: Service Date/Time: Monday, January 02, 2017 01:43 - CONCLUSION: 1. Moderate size hiatal hernia. No acute findings. Blue Elmore MD Objective Remarks awake and alert lungs clear regular rhythm abdomen- soft, good bowel sounds extremities no calf tenderness post op dressings in place good peripheral pulses Procedures 01/02- IMN left hip Date of Insertion: Jan 02, 2017 Date of Removal: Jan 03, 2017 A/P Problem List: (1) Fracture of left femur ICD Code: S72.92XA Status: Acute (2) Dehydration ICD Code: E86.0 Status: Acute (3) HTN (hypertension) ICD Code: I10 Status: Acute Assessment and Plan 1. Left Femur Fx: S/P IMN- 01/02 s/p spontaneous fracture while wallking Ortho ff. PT daily 2. Dehydration-resolved. good po 3. HTN: BP 170's on arrival, likely compounded by pain. Currently BP 140's systolic. on Losartan and Norvasc. Hold Triamterene/HCTZ in light of dehydration. 4. DVT Prophylaxis: Lovenox 5. Social work for d/c planning as needed. - SNF- looking at signature d/w patient and CM Problem Qualifiers (1) Fracture of left femur: Qualified Code: S72.322A - Closed displaced transverse fracture of shaft of left femur, initial encounter Serge Junior MD Jan 04, 2017 09:31
[2017-01-04] MEDS: OXYBUTYNIN CHLORIDE 5 MG TAB PO SCH ×2 (09:36→22:28)
[2017-01-04] MEDS: CALCIUM/VITAMIN D 250 MG/125 U TAB PO SCH ×3 (09:36→18:00)
[2017-01-04] MEDS: CHOLECALCIFEROL (VIT D3) 5000 UNIT CAP PO SCH (09:36)
[2017-01-04] MEDS: DOCUSATE SODIUM 100 MG CAP PO SCH ×2 (09:36→22:28)
[2017-01-04] MEDS: LOSARTAN 50 MG TAB PO SCH (09:36)
[2017-01-04] MEDS: ENOXAPARIN SODIUM 30 MG/0.3 ML SYRINGE SQ SCH (09:37)
[2017-01-04 11:35] VITALS: O2SAT 94
[2017-01-04 12:00] VITALS: BP 141/61; PULSE 62; RESP 20; TEMP 97.3; O2SAT 95
[2017-01-04 16:05] VITALS: BP 136/71; PULSE 70; RESP 18; TEMP 97; O2SAT 95
[2017-01-04 19:04] VITALS: BP 136/56; PULSE 73; RESP 16; TEMP 97; O2SAT 95
[2017-01-04] MEDS: SODIUM CHLORIDE 0.9% FLUSH 5 ML FLUSH FLUSH SCH (22:27)
[2017-01-04] MEDS: ONDANSETRON HCL 4 MG/2 ML VIAL IVP PRN (22:28)
[2017-01-05] VITALS: BP 142/65; PULSE 78; RESP 16; TEMP 99; O2SAT 93
[2017-01-05] MEDS: LACTATED RINGER'S 1000 ML IV SCH ×2 (04:30→21:07)
[2017-01-05] MEDS: ACETAMINOPHEN/HYDROcodone 325 MG/7.5 MG TAB PO PRN ×3 (06:16→21:07)
[2017-01-05] MEDS: LEVOTHYROXINE SODIUM 100 MCG TAB PO SCH (06:16)
[2017-01-05 07:37] VITALS: BP 139/74; PULSE 73; RESP 18; TEMP 98; O2SAT 92
[2017-01-05] MEDS: SODIUM CHLORIDE 0.9% FLUSH 5 ML FLUSH FLUSH SCH ×2 (09:00→21:00)
[2017-01-05] MEDS: OXYBUTYNIN CHLORIDE 5 MG TAB PO SCH ×2 (09:01→21:07)
[2017-01-05] MEDS: CHOLECALCIFEROL (VIT D3) 5000 UNIT CAP PO SCH (09:01)
[2017-01-05] MEDS: ENOXAPARIN SODIUM 30 MG/0.3 ML SYRINGE SQ SCH (09:01)
[2017-01-05] MEDS: CALCIUM/VITAMIN D 250 MG/125 U TAB PO SCH ×3 (09:01→18:42)
[2017-01-05] MEDS: DOCUSATE SODIUM 100 MG CAP PO SCH ×2 (09:02→21:07)
[2017-01-05] MEDS: LOSARTAN 50 MG TAB PO SCH (09:02)
[2017-01-05 09:20] VITALS: O2SAT 92
--- NOTE | 2017-01-05 09:22 | HHI.PR ---
Subjective Remarks no complains po 100% + flatus, feels like she is going to have a BM Objective Vitals Vital Signs Date Time Temp Pulse Resp B/P Pulse Ox O2 Delivery O2 Flow Rate FiO2 01/05/17 07:37 98.0 73 18 139/74 92 01/05/17 00:00 99.0 78 16 142/65 93 01/04/17 19:26 Room Air 01/04/17 19:04 97.0 73 16 136/56 95 01/04/17 16:05 97.0 70 18 136/71 95 01/04/17 12:00 97.3 62 20 141/61 95 01/04/17 11:35 94 21 I/O 01/04/17 01/04/17 01/04/17 01/05/17 01/05/17 01/05/17 07:00 15:00 23:00 07:00 15:00 23:00 Intake Total 240 ml 600 ml 240 ml 240 ml Balance 240 ml 600 ml 240 ml 240 ml Intake Oral 240 ml 600 ml 240 ml 240 ml # Voids 2 2 2 3 # Bowel Movements 0 0 0 0 Result Diagram: 01/03/17 0556 01/03/1756 Imaging Last Impressions Femur X-Ray 01/02/17117 Signed Impressions: Service Date/Time: Monday, January 02, 2017 01:34 - CONCLUSION: 1. Fracture proximal to mid shaft left femur with displacement of the fracture by greater than one shaft width and approximately 9 cm of foreshortening and overlap. Blue Elmore MD Chest X-Ray 01/02/17117 Signed Impressions: Service Date/Time: Monday, January 02, 2017 01:43 - CONCLUSION: 1. Moderate size hiatal hernia. No acute findings. Blue Elmore MD Objective Remarks awake and alert lungs clear regular rhythm abdomen- soft, good bowel sounds extremities no calf tenderness post op dressings in place good peripheral pulses Procedures 01/02- IMN left hip Date of Insertion: Jan 02, 2017 Date of Removal: Jan 03, 2017 A/P Problem List: (1) Fracture of left femur ICD Code: S72.92XA Status: Acute (2) Dehydration ICD Code: E86.0 Status: Acute (3) HTN (hypertension) ICD Code: I10 Status: Acute Assessment and Plan 1. Left Femur Fx: S/P IMN- 01/02 s/p spontaneous fracture while wallking Ortho ff. PT daily 2. Dehydration-resolved. good po 3. HTN: BP 170's on arrival, likely compounded by pain. Currently BP 140's systolic. on Losartan and Norvasc. Hold Triamterene/HCTZ in light of dehydration. 4. DVT Prophylaxis: Lovenox 5. Hypokalemia- recheck K now SNF- looking at signature if cleared with Ortho d/w patient and CM Problem Qualifiers (1) Fracture of left femur: Qualified Code: S72.322A - Closed displaced transverse fracture of shaft of left femur, initial encounter Serge Junior MD Jan 05, 2017 09:22
[2017-01-05 12:00] VITALS: BP 152/69; PULSE 78; RESP 18; TEMP 98.9; O2SAT 94
[2017-01-05] MEDS ORDERED: POTASSIUM CHLORIDE 20 MEQ CONTROLLED RELEASE TAB PO ONE (14:45)
[2017-01-05 16:00] VITALS: BP 129/64; PULSE 70; RESP 18; TEMP 96.9; O2SAT 94
--- NOTE | 2017-01-05 17:15 | HHI.DS ---
Discharge Summary Admission Date Admitting Diagnosis CBC/BMP: 01/03/17 0556 01/05/17 1030 Significant Findings Imaging Pt Condition on Discharge: Stable Discharge Instructions DIET: Follow Instructions for: As Tolerated, No Restrictions Speech Therapy-Diet Recommends: Regular Activities you can perform: Weight Bearing as Maryam Activities to Avoid: Prolonged Standing, Strenuous Activity Follow up Referrals: Orthopedics - 01/16/17 @ [facility] with Jun Woods MD New Medications: Calcium Carbonate-Vitamin D (Calcium 600+D 200) 600-200 Mg-Unit Tab 1 TAB PO BID Nutritional Supplement Days 21 Ref 0 TAB Cholecalciferol (Vitamin D3) 2,000 Unit Cap 2000 UNITS PO DAILY Nutritional Supplement #56 Ref 0 CAP Ergocalciferol (Ergocalciferol) 50,000 Unit Cap 16434 UNITS PO Q7D Nutritional Supplement #56 CAP Hydrocodone-Acetaminophen ([place]) 7.5-325 mg Tab 1 TAB PO Q6H PRN PAIN #60 Ref 0 TAB Walker/Adult/Folding (Walker/Adult/Folding) 1 Mis Mis 1 EA .ROUTE DIRECTED #1 Ref 0 EA Discontinued Medications: Alendronate (Fosamax) 70 Mg Tab 70 MG PO Q7D Osteoporosis Treatment #4 Ref 0 TAB Serge Junior MD Jan 05, 2017 17:15 05:56 Red Blood Count 3.85 MIL/MM3 (4.00-5.30) Hemoglobin 11.4 GM/DL (11.6-15.3) Hematocrit 33.6 % (35.0-46.0) Neutrophils (%) (Auto) 81.4 % (16.0-70.0) Lymphocytes # (Auto) 0.9 TH/MM3 (1.0-4.8) Potassium Level 3.2 MEQ/L (3.5-5.1) Chloride Level 108 MEQ/L (98-107) Random Glucose 110 MG/DL (74-106) Total Protein 5.6 GM/DL (6.4-8.2) Albumin 2.7 GM/DL (3.4-5.0) Imaging Last Impressions Femur X-Ray 01/02/17117 Signed Impressions: Service Date/Time: Monday, January 02, 2017 01:34 - CONCLUSION: 1. Fracture proximal to mid shaft left femur with displacement of the fracture by greater than one shaft width and approximately 9 cm of foreshortening and overlap. Blue Elmore MD Chest X-Ray 01/02/17117 Signed Impressions: Service Date/Time: Monday, January 02, 2017 01:43 - CONCLUSION: 1. Moderate size hiatal hernia. No acute findings. Blue Elmore MD PE at Discharge awake and alert lungs clear regular rhythm abdomen- soft, good bowel sounds extremities no calf tenderness post op dressings in place good peripheral pulses Pt update on day of discharge awake and alert motivated with more therapy ain controlled Hospital Course 1. Left Femur Fx: S/P IMN- 01/02 s/p spontaneous fracture while wallking Ortho ff. PT daily 2. Dehydration-resolved. good po 3. HTN: BP 170's on arrival,improved on Losartan and Norvasc. Hold Triamterene/HCTZ in light of dehydration. 4. DVT Prophylaxis: on Lovenox here. Xarelto 10 mg x 14 days in SNF 5. Hypokalemia- improved SNF- looking at signature if cleared with Ortho- today d/w patient and CM Pt Condition on Discharge: Stable Discharge Disposition: Discharge to SNF Discharge Time: <= 30 minutes Discharge Instructions DIET: Follow Instructions for: As Tolerated, No Restrictions Speech Therapy-Diet Recommends: Regular Activities you can perform: Weight Bearing as Maryam Activities to Avoid: Prolonged Standing, Strenuous Activity Follow up Referrals: Orthopedics - 01/16/17 @ [facility] with Jun Woods MD New Medications: Calcium Carbonate-Vitamin D (Calcium 600+D 200) 600-200 Mg-Unit Tab 1 TAB PO BID Nutritional Supplement Days 21 Ref 0 TAB Cholecalciferol (Vitamin D3) 2,000 Unit Cap 2000 UNITS PO DAILY Nutritional Supplement #56 Ref 0 CAP Ergocalciferol (Ergocalciferol) 50,000 Unit Cap 77584 UNITS PO Q7D Nutritional Supplement #56 CAP Hydrocodone-Acetaminophen ([place]) 7.5-325 mg Tab 1 TAB PO Q6H PRN PAIN #60 Ref 0 TAB Walker/Adult/Folding (Walker/Adult/Folding) 1 Mis Mis 1 EA .ROUTE DIRECTED #1 Ref 0 EA Discontinued Medications: Alendronate (Fosamax) 70 Mg Tab 70 MG PO Q7D Osteoporosis Treatment #4 Ref 0 TAB Serge Junior MD Jan 05, 2017 17:15
[2017-01-05 19:41] VITALS: BP 127/65; PULSE 73; RESP 17; TEMP 97.9; O2SAT 94
[2017-01-06] VITALS: BP 142/66; PULSE 79; RESP 20; TEMP 99.4; O2SAT 95
[2017-01-06] MEDS: LEVOTHYROXINE SODIUM 100 MCG TAB PO SCH (05:26)
--- NOTE | 2017-01-06 07:20 | PD.ORT.PN ---
Subjective Subjective Remarks Resting comfortably with no new complaints Objective Vitals Vital Signs Date Time Temp Pulse Resp B/P Pulse Ox O2 Delivery O2 Flow Rate FiO2 01/06/17 00:00 99.4 79 20 142/66 95 01/05/17 19:41 97.9 73 17 127/65 94 01/05/17 19:32 Room Air 01/05/17 16:00 96.9 70 18 129/64 94 01/05/17 12:00 98.9 78 18 152/69 94 01/05/17 09:20 92 21 01/05/17 07:37 98.0 73 18 139/74 92 I/O 01/05/17 01/05/17 01/05/17 01/06/17 01/06/17 01/06/17 07:00 15:00 23:00 07:00 15:00 23:00 Intake Total 240 ml 720 ml 240 ml Balance 240 ml 720 ml 240 ml Intake Oral 240 ml 720 ml 240 ml # Voids 3 2 4 1 # Bowel Movements 0 1 4 0 Result Diagram: 01/03/17 0556 01/05/17 1030 Imaging Last 24 hours Impressions Femur X-Ray 01/02/17117 Signed Impressions: Service Date/Time: Monday, January 02, 2017 01:34 - CONCLUSION: 1. Fracture proximal to mid shaft left femur with displacement of the fracture by greater than one shaft width and approximately 9 cm of foreshortening and overlap. Blue Elmore MD Chest X-Ray 01/02/17117 Signed Impressions: Service Date/Time: Monday, January 02, 2017 01:43 - CONCLUSION: 1. Moderate size hiatal hernia. No acute findings. Blue Elmore MD Objective Remarks RLE: dressings clean and dry. intact. NVI Assessment & Plan Assessment and Plan 1) Left Midshaft Femur fx s/p IMN - POD 4 -WBAT -dressing changes -CM for rehab placement - Ortho cleared -DVT prophylaxis -f/u with Peggy or [facility] in 2 weeks ARCELIA SHAW PA-C Jan 06, 2017 07:20
[2017-01-06 08:00] VITALS: BP 178/81; PULSE 69; RESP 20; TEMP 98.8; O2SAT 95
[2017-01-06] MEDS: SODIUM CHLORIDE 0.9% FLUSH 5 ML FLUSH FLUSH SCH ×2 (09:00→21:44)
[2017-01-06] MEDS: OXYBUTYNIN CHLORIDE 5 MG TAB PO SCH ×2 (09:12→21:44)
[2017-01-06] MEDS: ENOXAPARIN SODIUM 30 MG/0.3 ML SYRINGE SQ SCH (09:12)
[2017-01-06] MEDS: DOCUSATE SODIUM 100 MG CAP PO SCH ×2 (09:13→21:44)
[2017-01-06] MEDS: LOSARTAN 50 MG TAB PO SCH (09:13)
[2017-01-06] MEDS: CHOLECALCIFEROL (VIT D3) 5000 UNIT CAP PO SCH (09:13)
[2017-01-06] MEDS: CALCIUM/VITAMIN D 250 MG/125 U TAB PO SCH ×3 (09:13→16:06)
[2017-01-06 10:16] VITALS: O2SAT 94
--- NOTE | 2017-01-06 10:33 | HHI.PR ---
Subjective Remarks no complains pain well controlled on po pain meds Objective Vitals Vital Signs Date Time Temp Pulse Resp B/P Pulse Ox O2 Delivery O2 Flow Rate FiO2 01/06/17 10:16 94 21 01/06/17 08:00 98.8 69 20 178/81 95 01/06/17 00:00 99.4 79 20 142/66 95 01/05/17 19:41 97.9 73 17 127/65 94 01/05/17 19:32 Room Air 01/05/17 16:00 96.9 70 18 129/64 94 01/05/17 12:00 98.9 78 18 152/69 94 I/O 01/05/17 01/05/17 01/05/17 01/06/17 01/06/17 01/06/17 07:00 15:00 23:00 07:00 15:00 23:00 Intake Total 240 ml 720 ml 240 ml Balance 240 ml 720 ml 240 ml Intake Oral 240 ml 720 ml 240 ml # Voids 3 2 4 1 # Bowel Movements 0 1 4 0 Result Diagram: 01/03/17 0556 01/05/17 1030 Imaging Last Impressions Femur X-Ray 01/02/17117 Signed Impressions: Service Date/Time: Monday, January 02, 2017 01:34 - CONCLUSION: 1. Fracture proximal to mid shaft left femur with displacement of the fracture by greater than one shaft width and approximately 9 cm of foreshortening and overlap. Blue Elmore MD Chest X-Ray 01/02/17117 Signed Impressions: Service Date/Time: Monday, January 02, 2017 01:43 - CONCLUSION: 1. Moderate size hiatal hernia. No acute findings. Blue Elmore MD Objective Remarks awake and alert lungs clear regular rhythm abdomen- soft, good bowel sounds extremities no calf tenderness post op dressings in place good peripheral pulses Procedures 01/02- IMN left hip Date of Insertion: Jan 02, 2017 Date of Removal: Jan 03, 2017 A/P Problem List: (1) Fracture of left femur ICD Code: S72.92XA Status: Acute (2) Dehydration ICD Code: E86.0 Status: Acute (3) HTN (hypertension) ICD Code: I10 Status: Acute Assessment and Plan 1. Left Femur Fx: S/P IMN- 01/02 s/p spontaneous fracture while wallking Ortho ff. PT daily 2. Dehydration-resolved. 3. HTN: improved on Losartan and Norvasc. Hold Triamterene/HCTZ in light of dehydration. 4. DVT Prophylaxis: Lovenox 5. Hypokalemia- rimproved SNF-cleared with Ortho d/w patient and CM- [facility]- awaiting bed prn pain meds DVT prophylaxisLovenox while here Xarelto 10 mg on DC Problem Qualifiers (1) Fracture of left femur: Qualified Code: S72.322A - Closed displaced transverse fracture of shaft of left femur, initial encounter Serge Junior MD Jan 06, 2017 10:33
[2017-01-06 12:00] VITALS: BP 148/78; PULSE 81; RESP 21; TEMP 97.5; O2SAT 96
[2017-01-06 16:00] VITALS: BP 161/70; PULSE 69; RESP 21; TEMP 98.9; O2SAT 98
[2017-01-06] MEDS: ACETAMINOPHEN/HYDROcodone 325 MG/7.5 MG TAB PO PRN ×2 (16:10→23:23)
[2017-01-06 20:35] VITALS: BP 152/72; PULSE 69; RESP 18; TEMP 99.7; O2SAT 93
[2017-01-06] MEDS: LACTATED RINGER'S 1000 ML IV SCH (21:44)
[2017-01-07 00:15] VITALS: BP 159/70; PULSE 72; RESP 18; TEMP 96.3; O2SAT 96
[2017-01-07] MEDS: LEVOTHYROXINE SODIUM 100 MCG TAB PO SCH (05:53)
[2017-01-07] MEDS: ACETAMINOPHEN/HYDROcodone 325 MG/7.5 MG TAB PO PRN ×2 (05:53→12:59)
[2017-01-07 08:33] VITALS: BP 172/77; PULSE 63; RESP 16; TEMP 97; O2SAT 95
[2017-01-07] MEDS: DOCUSATE SODIUM 100 MG CAP PO SCH (10:15)
[2017-01-07] MEDS: CHOLECALCIFEROL (VIT D3) 5000 UNIT CAP PO SCH (10:15)
[2017-01-07] MEDS: ENOXAPARIN SODIUM 30 MG/0.3 ML SYRINGE SQ SCH (10:15)
[2017-01-07] MEDS: SODIUM CHLORIDE 0.9% FLUSH 5 ML FLUSH FLUSH SCH (10:16)
[2017-01-07] MEDS: OXYBUTYNIN CHLORIDE 5 MG TAB PO SCH (10:16)
[2017-01-07] MEDS: CALCIUM/VITAMIN D 250 MG/125 U TAB PO SCH ×2 (10:16→12:59)
[2017-01-07] MEDS: LOSARTAN 50 MG TAB PO SCH (10:16)
[2017-01-07 11:27] VITALS: BP 157/67; PULSE 68; RESP 17; TEMP 97.1; O2SAT 93
--- NOTE | 2017-01-07 12:17 | HHI.PR ---
Subjective Remarks pain controlled patient voiding and moving her bowels Objective Vitals Vital Signs Date Time Temp Pulse Resp B/P Pulse Ox O2 Delivery O2 Flow Rate FiO2 01/07/17 08:33 97.0 63 16 172/77 95 01/07/17 00:15 96.3 72 18 159/70 96 01/06/17 20:35 99.7 69 18 152/72 93 01/06/17 16:00 98.9 69 21 161/70 98 I/O 01/06/17 01/06/17 01/06/17 01/07/17 01/07/17 01/07/17 07:00 15:00 23:00 07:00 15:00 23:00 Intake Total 240 ml 240 ml 240 ml Balance 240 ml 240 ml 240 ml Intake Oral 240 ml 240 ml 240 ml # Voids 1 1 1 # Bowel Movements 0 0 0 Result Diagram: 01/03/17 0556 01/05/17 1030 Imaging Last Impressions Femur X-Ray 01/02/17117 Signed Impressions: Service Date/Time: Monday, January 02, 2017 01:34 - CONCLUSION: 1. Fracture proximal to mid shaft left femur with displacement of the fracture by greater than one shaft width and approximately 9 cm of foreshortening and overlap. Blue Elmore MD Chest X-Ray 01/02/17117 Signed Impressions: Service Date/Time: Monday, January 02, 2017 01:43 - CONCLUSION: 1. Moderate size hiatal hernia. No acute findings. Blue Elmore MD Objective Remarks awake and alert lungs clear regular rhythm abdomen- soft, good bowel sounds extremities no calf tenderness left aspect of left thigh -post op dressings in place good peripheral pulses Procedures 01/02- IMN left hip Date of Insertion: Jan 02, 2017 Date of Removal: Jan 03, 2017 A/P Problem List: (1) Fracture of left femur ICD Code: S72.92XA Status: Acute (2) Dehydration ICD Code: E86.0 Status: Acute (3) HTN (hypertension) ICD Code: I10 Status: Acute Assessment and Plan 1. Left Femur Fx: S/P IMN- 01/02 s/p spontaneous fracture while wallking Ortho ff. PT daily 2. Dehydration-resolved. 3. HTN: monitor readings pain control on Losartan 50 mg daily and Norvasc. Hold Triamterene/HCTZ in light of dehydration. 4. DVT Prophylaxis: Lovenox 5. Hypokalemia- improved SNF-cleared with Ortho d/w patient and CM- [facility]- bed available today- d/w CM prn pain meds recheck labs in SNF in 1-2 days DVT prophylaxis Lovenox while here Xarelto 10 mg on DC Problem Qualifiers (1) Fracture of left femur: Qualified Code: S72.322A - Closed displaced transverse fracture of shaft of left femur, initial encounter Serge Junior MD Jan 07, 2017 12:17
--- NOTE | 2017-01-07 12:18 | HHI.DS ---
Discharge Summary Admission Date Jan 02, 2017 at 02:18 Discharge Date: Jan 07, 2017 Admitting Diagnosis fracture left femur (1) Fracture of left femur ICD Code: S72.92XA Diagnosis: Principal (2) Dehydration ICD Code: E86.0 Diagnosis: Secondary (3) HTN (hypertension) ICD Code: I10 Diagnosis: Secondary Procedures 01/02- IMN left hip Brief History - From Admission This is an 81-year-old female with a PMH of HTN and Hypothyroidism who is brought to the ER by EMS secondary to acute onset of severe left leg pain. 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 Unable to ambulate. On arrival, BP 177/83, HR 77, O2 sat 95% on RA, Afebrile. CBC unremarkable. Chemistry essentially unremarkable except for GFR 56. CXR with moderate sized hiatal hernia, no acute findings. Femur X-ray with fracture proximal to mid shaft left femur with displacement of fracture. Ortho consulted by ER physician, plan for surgical intervention in am. CBC/BMP: 01/03/17 0556 01/05/17 1030 Imaging Last Impressions Femur X-Ray 01/02/17117 Signed Impressions: Service Date/Time: Monday, January 02, 2017 01:34 - CONCLUSION: 1. Fracture proximal to mid shaft left femur with displacement of the fracture by greater than one shaft width and approximately 9 cm of foreshortening and overlap. Blue Elmore MD Chest X-Ray 01/02/17117 Signed Impressions: Service Date/Time: Monday, January 02, 2017 01:43 - CONCLUSION: 1. Moderate size hiatal hernia. No acute findings. Blue Elmore MD PE at Discharge awake and alert lungs clear regular rhythm abdomen- soft, good bowel sounds extremities no calf tenderness left aspect of left thigh -post op dressings in place good peripheral pulses Transfer Summary 1. Left Femur Fx: S/P IMN- 01/02 s/p spontaneous fracture while wallking Ortho ff. PT daily 2. Dehydration-resolved. 3. HTN: improved on Losartan and Norvasc. Hold Triamterene/HCTZ in light of dehydration. 4. DVT Prophylaxis: Lovenox 5. Hypokalemia- rimproved SNF-cleared with Ortho d/w patient and CM- [facility] bed available today- d/w CM prn pain meds DVT prophylaxisLovenox while here Xarelto 10 mg on DC Pt update on day of discharge pain controlled motivated with therapy Hospital Course 1. Left Femur Fx: S/P IMN- 01/02 s/p spontaneous fracture while wallking Ortho ff. PT daily 2. Dehydration-resolved. 3. HTN: monitor readings pain control on Losartan 50 mg daily and Norvasc. Hold Triamterene/HCTZ in light of dehydration. 4. DVT Prophylaxis: Lovenox 5. Hypokalemia- improved SNF-cleared with Ortho d/w patient and CM- [facility] bed available today- d/w CM prn pain meds recheck labs in SNF in 1-2 days DVT prophylaxis Lovenox while here Xarelto 10 mg on DC Pt Condition on Discharge: Stable Discharge Disposition: Discharge to SNF Discharge Time: <= 30 minutes Discharge Instructions DIET: Follow Instructions for: As Tolerated, No Restrictions Speech Therapy-Diet Recommends: Regular Activities you can perform: Weight Bearing as Maryam Activities to Avoid: Prolonged Standing, Strenuous Activity Follow up Referrals: Orthopedics - 01/16/17 @ [facility] with Jun Woods MD New Orders: BASIC METABOLIC PROF - 01/08/17 New Medications: Calcium Carbonate-Vitamin D (Calcium 600+D 200) 600-200 Mg-Unit Tab 1 TAB PO BID Nutritional Supplement Days 21 Ref 0 TAB Cholecalciferol (Vitamin D3) 2,000 Unit Cap 2000 UNITS PO DAILY Nutritional Supplement #56 Ref 0 CAP Ergocalciferol (Ergocalciferol) 50,000 Unit Cap 41442 UNITS PO Q7D Nutritional Supplement #56 CAP Hydrocodone-Acetaminophen (Novelty) 7.5-325 mg Tab 1 TAB PO Q6H PRN PAIN #60 Ref 0 TAB Walker/Adult/Folding (Walker/Adult/Folding) 1 Mis Mis 1 EA .ROUTE DIRECTED #1 Ref 0 EA Continued Medications: Alendronate (Fosamax) 70 Mg Tab 70 MG PO Q7D Osteoporosis Treatment #4 Ref 0 TAB Amlodipine (Amlodipine) 10 Mg Tab 10 MG PO DAILY Blood Pressure Management #30 Ref 0 TAB Levothyroxine (Levothyroxine) 100 Mcg Tab 100 MCG PO DAILY Thyroid #30 Ref 0 TAB Losartan (Losartan) 50 Mg Tab 50 MG PO DAILY Blood Pressure Management #30 Ref 0 TAB Lovastatin (Lovastatin) 40 Mg Tab 40 MG PO BID Cholesterol Management #30 Ref 0 TAB Oxybutynin (Ditropan) 5 Mg Tab 5 MG PO Q12HR Urinary Symptom Managemen #60 Ref 0 TAB Potassium Chloride ER (Potassium Chloride ER) 10 Meq Cap 10 MEQ PO DAILY Electrolyte Replacement #30 Ref 0 CAP Discontinued Medications: Tramadol (Tramadol) 50 Mg Tab 50 MG PO DAILY Pain Ref 0 TAB Triamterene-Hydrochlorothiazide (Triamterene-Hydrochlorothiazide) 37.5-25 Mg Tab 1 TAB PO DAILY #30 Ref 0 TAB Serge Junior MD Jan 07, 2017 12:18
[2017-01-07] MEDS ORDERED: XARE10TA PO (12:20)
== END 2017-01-07 15:18 | DRG 482 ==
LOC: NEPC 01:15 → NEDA 02:18 → N06B 04:03
PROVIDERS: ADMIT Internal Medicine; ATTEND Internal Medicine
PROC: 0QS9XZZ Reposition Left Femoral Shaft, External Approach (ICD-10-PCS; 2017-01-02)
PROC: 0QH906Z Insertion of Intramedullary Internal Fixation Device into Left Femoral Shaft, Open Approach (ICD-10-PCS; principal; 2017-01-02 09:02)
DX: M84.452A Pathological fracture, left femur, initial encounter for fracture (principal); E86.0 Dehydration; M81.0 Age-related osteoporosis without current pathological fracture; Z79.83 Long term (current) use of bisphosphonates; I10 Essential (primary) hypertension; E87.6 Hypokalemia; E03.9 Hypothyroidism, unspecified; K44.9 Diaphragmatic hernia without obstruction or gangrene; E78.5 Hyperlipidemia, unspecified
CPT/HCPCS: 51702; 71010; 73552; 76000; 80053; 81001; 82306; 84132; 85025; 85610; 85730; 86850; 86900; 86901; 93005; 96361; 96374; 96375; C1713; J0131; J0690; J1100; J1170; J1580; J1650; J2250; J2405; J2710; J3010; J3370; J7030; J7050